=== PATIENT | female | born 1975 | race Caucasian/White ===

== ENCOUNTER → 2020-03-17 | Outpatient (CLI) | payer OTHER ==
[~2020-03-17] MED LIST: COMPAZINE10 MG PO; FLAGYL500 MG PO; MEDROL DOSEPAK4 MG PO; PHENERGAN W/CO120 ML PO; PROAIR HFA0.09 MG/AC IH; ZITHROMAX250 MG PO
== END | disposition home or self-care (01) ==
LOC: COVID19 10:08
PROVIDERS: ATTEND Family Medicine
DX: Z20.828 Contact with and (suspected) exposure to other viral communicable diseases (principal)

== ENCOUNTER → 2020-04-11 | Outpatient (CLI) | payer OTHER | END | disposition home or self-care (01) | LOC: COVID19 13:15 | PROVIDERS: ATTEND Family Medicine | DX: Z20.822 Contact with and (suspected) exposure to COVID-19 (principal) ==

== ENCOUNTER → 2021-04-06 | Outpatient (CLI) | payer OTHER | END | disposition home or self-care (01) | LOC: COVID19 17:50 | PROVIDERS: ATTEND Student in an Organized Health Care Education/Training Program | DX: Z11.52 Encounter for screening for COVID-19 (principal) ==